=== PATIENT | female | born 2000 | race Two or more races ===

== ENCOUNTER 2018-04-13 23:54 | Emergency (ER) | payer OTHER ==
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
[2018-04-14] MEDS ORDERED: IBUPROFEN 800 MG TAB PO ONE (00:21)
--- NOTE | 2018-04-14 00:28 | CPEKG ---
Heart Rate: 72 RR Interval: 833 P-R Interval: 128 QRSD Interval: 80 QT Interval: 404 QTC Interval: 443 P Schriever: 66 QRS Schriever: 26 T Wave Schriever: 28 EKG Severity - NORMAL ECG - EKG Impression: SINUS RHYTHM Electronically Signed By: Osmani Zayas 14-Apr-2018 06:39:41
[2018-04-14 03:04] VITALS: BP 106/73
== END 2018-04-14 03:04 | disposition home or self-care (01) ==
DX: S16.1XXA Strain of muscle, fascia and tendon at neck level, initial encounter (principal); V48.6XXA Car passenger injured in noncollision transport accident in traffic accident, initial encounter; Y92.410 Unspecified street and highway as the place of occurrence of the external cause
CPT/HCPCS: L0172